=== PATIENT | female | born 1985 | race African-American/Black ===

== ENCOUNTER 2022-12-05 15:59 | Observation (INO) | payer MEDICAID ==
[~2022-12-05] VITALS: Ht 160 cm; Wt 147.4 kg
[2022-12-05 17:55] LABS: BASOPHILS % 0.5 % (0.0-2.0); EOSINOPHILS % 1.2 % (0.0-5.0); HEMATOCRIT. 35.4 % (36.0-48.0); HEMOGLOBIN. 11.4 g/dL (12.0-16.0); LYMPHOCYTES % 26.6 % (20.0-50.0); MEAN CORPUSCULAR HGB CONC 32.3 g/dL (31.0-37.0); MEAN CORPUSCULAR VOLUME 80.4 fL (81.0-99.0); MEAN PLATELET VOLUME 8.1 fl (7.4-10.4); MONOCYTES % 8.2 % (2.0-8.0); NEUTROPHILS % 63.5 % (40.0-76.0); PLATELET 396 x1000/uL (130-400); RED CELL DISTRIBUTION WIDTH 14.5 % (11.6-14.6); WHITE BLOOD COUNT 9.3 x1000/uL (4.5-11.0)
[2022-12-05 18:12] LABS: CLARITY URINE CLOUDY (CLEAR); COLOR URINE DARK YELLOW (YELLOW); GLUCOSE URINE NEGATIVE (NEGATIVE); KETONES URINE 3+ (NEGATIVE); LEUKOCYTE ESTERASE URINE NEGATIVE (NEGATIVE); NITRITE URINE NEGATIVE (NEGATIVE); OCCULT BLOOD URINE 3+ (NEGATIVE); PROTEIN URINE TRACE (NEGATIVE); SPECIFIC GRAVITY URINE 1.023 (1.005-1.030)
[2022-12-05 18:15] LABS: BACTERIA URINE 1+; RBC URINE TNTC /hpf (0-2); SQUAMOUS EPITHELIAL CELL URINE 1+ /lpf (RARE/1+); YEAST URINE NONE SEEN
[2022-12-05 18:29] LABS: INDEX HEMOLYSI 1 (1-3); INDEX ICTERIC 1 (1-4); INDEX LIPEMIC 1 (1-3)
[2022-12-05 18:36] LABS: ALANINE AMINOTRANSFERASE 15 IU/L (13-61); ALBUMIN 2.6 g/dL (3.4-5.0); ASPARTATE AMINOTRANSFERASE 12 IU/L (15-37); BILIRUBIN TOTAL 0.3 mg/dL (0.1-1.0); CALCIUM 8.7 mg/dL (8.5-10.1); CARBON DIOXIDE 22 mEq/L (21-32); CHLORIDE 108 mEq/L (98-107); CREATININE 0.6 mg/dL (0.6-1.3); GLUCOSE 74 mg/dL (70-105); POTASSIUM 3.6 mEq/L (3.5-5.1); PROTEIN TOTAL 6.8 g/dL (6.0-8.3); SODIUM 140 mEq/L (136-145); UREA NITROGEN BLOOD 3 mg/dL (7-21)
[2022-12-05] MEDS ORDERED: ONDANSETRON 4MG ODT PO NR (20:15)
== END 2022-12-05 21:00 | disposition home or self-care (01) ==
LOC: 8 EST LDRP 15:59
PROVIDERS: ADMIT Obstetrics & Gynecology; ATTEND Obstetrics & Gynecology
DX: O21.2 Late vomiting of pregnancy (principal); O24.419 Gestational diabetes mellitus in pregnancy, unspecified control; Z3A.26 26 weeks gestation of pregnancy
CPT/HCPCS: 59025; 99281; 80051; 80053; 81003; 82947; 85025; 36415; 76818; 76805; Q0162; G0378 ×2; G0379

== ENCOUNTER 2023-01-27 08:16 | Emergency (ER) | payer MEDICAID ==
[~2023-01-27] VITALS: Ht 165.1 cm; Wt 127.0 kg
[2023-01-27 08:18] VITALS: BP 142/82; O2SAT 98
[2023-01-27 08:22] VITALS: PULSE 77; RESP 16
[2023-01-27 10:45] VITALS: TEMP 98.4
[2023-01-27] MEDS ORDERED: ACETAMINOPHEN 325MG TABLET PO ONE (10:45)
== END 2023-01-27 11:37 | disposition home or self-care (01) ==
LOC: ER 08:16
DX: O99.891 Other specified diseases and conditions complicating pregnancy (principal); M54.12 Radiculopathy, cervical region; M25.512 Pain in left shoulder; Z3A.35 35 weeks gestation of pregnancy
CPT/HCPCS: 73030; 99283; A4565